=== PATIENT | male | born 1985 | race Caucasian/White ===

== ENCOUNTER 2019-03-22 20:10 | Inpatient (IN) | payer MEDICAID ==
[~2019-03-22] VITALS: Ht 175.3 cm; Wt 86.5 kg
[2019-03-22] VITALS (8 sets, daily range): BP systolic 110–141; BP diastolic 69–118; BMI 27.8
[2019-03-22] MEDS ORDERED: PROZAC20 MG PO (20:14)
[2019-03-22] MEDS ORDERED: BUTALB-APAP-CA1 EACH PO (20:14)
[2019-03-22] MEDS ORDERED: VALIUM5 MG PO (20:14)
[2019-03-22] MEDS ORDERED: ALDACTONE25 MG PO (20:14)
[2019-03-22] MEDS ORDERED: MENEST1.25 MG PO (20:14)
[2019-03-22 21:11] LABS: BASOPHILS 0.2 % (0-2); EOSINOPHILS 4.8 % (0-7); HEMATOCRIT 40.3 % (42.0-54.0); HEMOGLOBIN 14.1 g/dL (13.5-17.5); IMMATURE GRANULOCYTES 0.2 % (0-5); LYMPHOCYTES 19.9 % (15-50); MCH 31.8 pg (26.0-34.0); MEAN PLATELET VOLUME 9.5 fL (7.4-10.4); MONOCYTES 6.7 % (2-11); NEUTROPHILS 68.2 % (40-80); PLATELET COUNT 306 10x3/uL (130-400); RBC 4.43 10x6/uL (4.20-6.10); WBC 12.5 10x3/uL (4.8-10.8)
[2019-03-22 21:33] LABS: ALBUMIN 3.4 g/dL (3.4-5.0); ALKALINE PHOSPHATASE 67 U/L (46-116); ALT (SGPT) 28 U/L (10-68); AMYLASE - SERUM 45 U/L (25-115); BILIRUBIN - TOTAL 0.18 mg/dL (0.2-1.3); CALC OSMOLALITY 277 mosm/kg (275-300); CALCIUM 8.4 mg/dL (8.5-10.1); CARBON DIOXIDE 18.8 mmol/L (21.0-32.0); CHLORIDE - SERUM 107 mmol/L (98-107); CREATININE - SERUM 0.7 mg/dL (0.6-1.3); GLUCOSE 88 mg/dL (74-106); LIPASE 176 U/L (73-393); POTASSIUM - SERUM 4.2 mmol/L (3.5-5.1); PROTEIN - SERUM 6.9 g/dL (6.4-8.2); SODIUM 140 mmol/L (136-145); UREA NITROGEN 12 mg/dL (7-18); eGFR NON AFRICAN AMERICAN > 90 mL/min (90-120)
[2019-03-22 21:47] LABS: UDS - AMPHET NEGATIVE QUAL (NEGATIVE); UDS - BARB POSITIVE QUAL (NEGATIVE); UDS - BENZO POSITIVE QUAL (NEGATIVE); UDS - COCAINE NEGATIVE QUAL (NEGATIVE); UDS - OPIATE NEGATIVE QUAL (NEGATIVE); UDS - PCP NEGATIVE QUAL (NEGATIVE); UDS - THC NEGATIVE QUAL (NEGATIVE)
[2019-03-22 21:51] LABS: APPEARANCE CLEAR (CLEAR); BILIRUBIN NEGATIVE (NEGATIVE); COLOR YELLOW (YELLOW); GLUCOSE NEGATIVE (NEGATIVE); KETONE NEGATIVE (NEGATIVE); NITRITE NEGATIVE (NEGATIVE); PROTEIN TRACE mg/dL (NEGATIVE); SPECIFIC GRAVITY 1.025 (1.005-1.020); UROBILINOGEN NORMAL (NORMAL)
[2019-03-22 21:53] LABS: BACTERIA FEW /hpf (NONE SEEN); EPITHELIAL CELLS 0-5 /hpf (0-5); RED CELLS - URINE 0-5 /hpf (0-5); WHITE CELLS - URINE RARE /hpf (0-5)
[2019-03-23] VITALS (19 sets, daily range): BP systolic 110–131; BP diastolic 71–89
--- NOTE | 2019-03-23 17:22 | MORECARE ---
CASE MANAGEMENT DISCHARGE SUMMARY PATIENT: VENITA BATES UNIT: [id number] ADM DATE: 03/22/19 AGE: 33 : 85 SEX: M ROOM/BED: D.2307 AUTHOR: MARILYNN VU PHYSICIAN: REFERRING PHYSICIAN: SHERLEY HELLER MD DATE OF SERVICE: 03/23/19 Discharge Plan Patient Name: VENITA BATES [facility] [facility] 1985 Planned Disposition: Anticipated Discharge Date: Discharge Date: Expected LOS: Initial Reviewer: [email or web address] Initial Review Date: 03/23/2019 Generated: 03/23/19 6:22 pm Patient Name: VENITA BATES Page 16815 at 1722 All edits/amendments must be made on the electronic document DICTATION DATE: 03/23/191721 GARDEN IMPLEMENT MECHANIC: RAKEL 03/23/191721 RPT#: [id number] DC DATE: STATUS: ADM IN [facility] [address] [place] [address] END OF REPORT
[2019-03-24] VITALS (24 sets, daily range): BP systolic 86–133; BP diastolic 59–95
[2019-03-24 05:04] LABS: BASOPHILS 0.3 % (0-2); EOSINOPHILS 5.4 % (0-7); HEMATOCRIT 37.7 % (42.0-54.0); IMMATURE GRANULOCYTES 0.1 % (0-5); LYMPHOCYTES 24.5 % (15-50); MCH 31.4 pg (26.0-34.0); MCHC 34.5 g/dL (31.0-37.0); MCV 91.1 fL (80.0-100.0); MEAN PLATELET VOLUME 9.6 fL (7.4-10.4); MONOCYTES 8.6 % (2-11); NEUTROPHILS 61.1 % (40-80); PLATELET COUNT 293 10x3/uL (130-400); RBC 4.14 10x6/uL (4.20-6.10); RDW 12.8 % (11.5-14.5)
[2019-03-24 05:45] LABS: WBC 7.8 10x3/uL (4.8-10.8)
[2019-03-24 05:50] LABS: CALCIUM 8.2 mg/dL (8.5-10.1); CHLORIDE - SERUM 107 mmol/L (98-107); CREATININE - SERUM 0.7 mg/dL (0.6-1.3); GLUCOSE 88 mg/dL (74-106); SODIUM 140 mmol/L (136-145); eGFR NON AFRICAN AMERICAN > 90 mL/min (90-120)
[2019-03-24 05:53] LABS: CALC OSMOLALITY 279 mosm/kg (275-300); CARBON DIOXIDE 28.3 mmol/L (21.0-32.0); UREA NITROGEN 17 mg/dL (7-18)
--- NOTE | 2019-03-24 19:33 | MORECARE ---
CASE MANAGEMENT DISCHARGE SUMMARY PATIENT: VENITA BATES UNIT: [id number] ADM DATE: 03/22/19 AGE: 33 : 85 SEX: M ROOM/BED: D.2307 AUTHOR: MARILYNN VU PHYSICIAN: REFERRING PHYSICIAN: SHERLEY HELLER MD DATE OF SERVICE: 03/24/19 Discharge Plan Patient Name: VENITA BATES [facility] [facility] 1985 Planned Disposition: Anticipated Discharge Date: Discharge Date: Expected LOS: Initial Reviewer: [id number] Initial Review Date: 03/23/2019 Generated: 03/24/19 8:32 pm Comments DCP- Discharge Planning Updated by [email or web address]: Kamilah Sanz on 03/24/19 6:[address] AWAITING MEDICAL CLEARANCE FOR PSYCH PLACEMENT. Last DP export: 03/23/19 4:22 p Patient Name: VENITA BATES Page 48282 at 1933 All edits/amendments must be made on the electronic document DICTATION DATE: 03/24/191931 FIRE PREVENTION ENGINEER: RAKEL 03/24/191931 RPT#: [id number] DC DATE: STATUS: ADM IN [facility] [address] [place] [address] END OF REPORT
[2019-03-25] VITALS (24 sets, daily range): BP systolic 79–147; BP diastolic 55–94; Ht 175.3 cm; Wt 86.5 kg
[2019-03-25 04:26] LABS: BASOPHILS 0.1 % (0-2); EOSINOPHILS 3.2 % (0-7); HEMATOCRIT 36.5 % (42.0-54.0); HEMOGLOBIN 12.8 g/dL (13.5-17.5); IMMATURE GRANULOCYTES 0.1 % (0-5); LYMPHOCYTES 25.9 % (15-50); MCH 31.4 pg (26.0-34.0); MCHC 35.1 g/dL (31.0-37.0); MCV 89.7 fL (80.0-100.0); MEAN PLATELET VOLUME 9.3 fL (7.4-10.4); MONOCYTES 7.6 % (2-11); NEUTROPHILS 63.1 % (40-80); PLATELET COUNT 261 10x3/uL (130-400); RBC 4.07 10x6/uL (4.20-6.10); RDW 12.4 % (11.5-14.5)
[2019-03-25 04:46] LABS: ALBUMIN 3.1 g/dL (3.4-5.0); ALKALINE PHOSPHATASE 64 U/L (46-116); ALT (SGPT) 33 U/L (10-68); AMYLASE - SERUM 31 U/L (25-115); BILIRUBIN - TOTAL 0.26 mg/dL (0.2-1.3); CALCIUM 7.7 mg/dL (8.5-10.1); CARBON DIOXIDE 25.6 mmol/L (21.0-32.0); CHLORIDE - SERUM 105 mmol/L (98-107); CREATININE - SERUM 0.7 mg/dL (0.6-1.3); GLUCOSE 93 mg/dL (74-106); LIPASE 123 U/L (73-393); PROTEIN - SERUM 6.4 g/dL (6.4-8.2); SODIUM 140 mmol/L (136-145); eGFR NON AFRICAN AMERICAN > 90 mL/min (90-120)
[2019-03-25 04:51] LABS: CALC OSMOLALITY 277 mosm/kg (275-300); POTASSIUM - SERUM 3.1 mmol/L (3.5-5.1); UREA NITROGEN 9 mg/dL (7-18)
--- NOTE | 2019-03-25 16:38 | CN ---
PATIENT NAME:VENITA BATES MEDICAL RECORD: [id number] : 85 LOCATION:[id number] ADMIT DATE: 03/25/19 ACCOUNT: [id number] CONSULTING PHYSICIAN: ТАТЬЯНА APODACA MD REFERRING PHYSICIAN: SHERLEY HELLER MD DATE OF CONSULTATION: 03/23/2019 IDENTIFYING DATA: The patient is 33 years old and "she" is admitted to the hospital on a voluntary basis secondary to an overdose. CHIEF COMPLAINT: "I had a lot of abdominal pain." HISTORY OF PRESENT ILLNESS: The patient is a biological male who says that he is transgender and prefers to be referred to with female pronouns. I will honor his request. The patient took 100 mg of Valium and two handfuls of gabapentin yesterday. She says that she did this to stop the pain in her abdomen. When asked to explain, she says that she has had abdominal pain for two weeks and that no one has addressed it or been willing to address it and that she felt that she could have something done if she took the overdose. She is to a biological woman. This is her second . She says that she did not leave a suicide note, but when I tell her that it is documented in the medical record from the significant other that a suicide note was left, she then changes her story and says that it was just simply instructions about what to do with possessions if occurred. The patient has tried to kill herself in the past, she did so 6 years ago by drinking Lysol. The patient says she has always been transgender, but only in recent years that she had the courage to speak up about it. She is under hormone implant replacement therapy from a ritual circumciser at [facility]. The patient endorses numerous neurovegetative depressive symptoms and admits to being depressed, but strongly denies being suicidal. MENTAL STATUS EXAMINATION: The patient is awake; alert; and oriented to person, place, time, and situation. Her mood is depressed. Her affect is constricted. Thought processes are circumstantial. Memory, concentration, and abstraction abilities are intact. There are no thoughts of harming others and no psychotic symptoms, and at the moment, she is denying any thoughts of suicide. ASSESSMENT: 1. Status post overdose. 2. Major depression. 3. Cluster B personality traits. 4. Transgender. PLAN: Once the patient is medically stabilized, I recommend she be transferred to inpatient psychiatric care. There are no facilities that I am aware of in this area that have any kind of special interest in transgender individuals. She tells me that she is reluctant to go to the hospital because she thinks the staff and the other patients will beat her up because she is transgender. I have assured her that that is not the case, but she was not very accepting of that explanation. Furthermore, she accused me of saying being transgender was a problem when I asked her how long these problems have been going on, referring to in the context of the conversation of the problems she was telling me about, about the pain in her belly and her head, her conflict with her community and school in [place], etc. I think that she is clearly very primitively defended and extra caution needs to be used when speaking to her. Nevertheless, she took a deliberate very serious overdose privately and wrote a suicide note CONSULT REPORT [id number] VENITA BATES yesterday. I do not believe that it is possible to just simply let her walk out of the hospital with a followup appointment with a psychiatrist some days or weeks down the road. She does need inpatient care to assure her safety and stabilize her before being transitioned to an outpatient. TRANSINT:[id number] Voice Confirmation ID: [id number] DOCUMENT ID: [id number] ТАТЬЯНА APODACA MD at 1638 CC: [id number] DICTATION DATE: 03/23/19 1623 DIRECTOR LIFE SCIENCES: 03/23/19 1742 ADM IN [place] [id number] [place] [id number]
[2019-03-26] VITALS (23 sets, daily range): BP systolic 102–153; BP diastolic 48–90
[2019-03-26 03:55] LABS: BASOPHILS 0.3 % (0-2); EOSINOPHILS 5.2 % (0-7); HEMOGLOBIN 12.1 g/dL (13.5-17.5); IMMATURE GRANULOCYTES 0.2 % (0-5); LYMPHOCYTES 28.3 % (15-50); MCH 31.3 pg (26.0-34.0); MCHC 34.6 g/dL (31.0-37.0); MCV 90.7 fL (80.0-100.0); MEAN PLATELET VOLUME 9.2 fL (7.4-10.4); MONOCYTES 7.4 % (2-11); NEUTROPHILS 58.6 % (40-80); PLATELET COUNT 235 10x3/uL (130-400); RBC 3.86 10x6/uL (4.20-6.10); RDW 12.8 % (11.5-14.5); WBC 6.4 10x3/uL (4.8-10.8)
[2019-03-26 04:06] LABS: CALCIUM 7.6 mg/dL (8.5-10.1); CARBON DIOXIDE 27.1 mmol/L (21.0-32.0); CHLORIDE - SERUM 105 mmol/L (98-107); CREATININE - SERUM 0.6 mg/dL (0.6-1.3); GLUCOSE 99 mg/dL (74-106); SODIUM 141 mmol/L (136-145); eGFR NON AFRICAN AMERICAN > 90 mL/min (90-120)
[2019-03-26 04:08] LABS: INR 1.07 (0.85-1.17); PROTIME 13.4 SECONDS (11.6-15.0)
[2019-03-26 04:09] LABS: CALC OSMOLALITY 277 mosm/kg (275-300); POTASSIUM - SERUM 3.2 mmol/L (3.5-5.1); UREA NITROGEN 5 mg/dL (7-18)
--- NOTE | 2019-03-26 12:37 | MORECARE ---
CASE MANAGEMENT DISCHARGE SUMMARY PATIENT: VENITA BATES UNIT: [id number] ADM DATE: 03/25/19 AGE: 33 : 85 SEX: M ROOM/BED: D.2307 AUTHOR: MARILYNN VU PHYSICIAN: REFERRING PHYSICIAN: SHERLEY HELLER MD DATE OF SERVICE: 03/26/19 Discharge Plan Patient Name: VENITA BATES [facility] [facility] 1985 Planned Disposition: Psych facility Anticipated Discharge Date: Discharge Date: Expected LOS: Initial Reviewer: [email or web address] Initial Review Date: 03/23/2019 Generated: 03/26/19 1:37 pm DCP- Discharge Planning Updated by [email or web address]: Kamilah Sanz on 03/24/19 6:[address] AWAITING MEDICAL CLEARANCE FOR PSYCH PLACEMENT. Last DP export: 03/24/19 6:32 p Patient Name: VENITA BATES Page 71299 at 1237 All edits/amendments must be made on the electronic document DICTATION DATE: 03/26/19 1236 STORY TELLER: RAKEL 03/26/19 1236 RPT#: [id number] DC DATE: STATUS: ADM IN [facility] [address] [place] [address] END OF REPORT
--- NOTE | 2019-03-26 12:44 | MORECARE ---
CASE MANAGEMENT DISCHARGE SUMMARY PATIENT: VENITA BATES UNIT: [id number] ADM DATE: 03/25/19 AGE: 33 : 85 SEX: M ROOM/BED: D.2307 AUTHOR: MARILYNN VU PHYSICIAN: REFERRING PHYSICIAN: SHERLEY HELLER MD DATE OF SERVICE: 03/26/19 Discharge Plan Patient Name: VENITA BATES [facility] [facility] 1985 Planned Disposition: Psych facility Anticipated Discharge Date: Discharge Date: Expected LOS: Initial Reviewer: [email or web address] Initial Review Date: 03/23/2019 Generated: 03/26/19 1:43 pm Comments DCP- Discharge Planning Updated by [email or web address]: Kamilah Sanz on 03/26/19 11:[address] Patient Name: VENITA BATES Admission Status: ER Accout number: [id number] Admission Date: 03-25-2019 : 1985 Admission Diagnosis: Attending: SHERLEY HELLER Current LOS: 1 Anticipated DC Date: Planned Disposition: Psych facility Primary Insurance: [place] [employer] [place] Discharge Planning Comments: CM NOTIFIED THAT ONCE PATIENT HAS EGD AND COLONOSCOPY TODAY THEN HE WILL BE READY FOR PLACEMENT FOR INPATIENT PSYCH FACILITY IN AM. CM WILL HAVE RECORDS READY TO SEND TO TRANSFER CENTER FIRST THING IN AM. CM WILL CONTINUE TO FOLLOW AND ASSIST NEEDED WITH DISCHARGE PLANNING / NEEDS. Hosiery Knitter: Kamilah Sanz DCP- Discharge Planning Updated by [email or web address]: Kamilah Sanz on 03/24/19 6:[address] AWAITING MEDICAL CLEARANCE FOR PSYCH PLACEMENT. Last DP export: 03/26/19 11:37 am Patient Name: VENITA BATES Page 04637 at 1244 All edits/amendments must be made on the electronic document DICTATION DATE: 03/26/191242 DISEASE CASE MANAGER: RAKEL 03/26/19 124 RPT#: [id number] DC DATE: STATUS: ADM IN [facility] [address] [place] [address] END OF REPORT
[2019-03-27] VITALS (11 sets, daily range): BP systolic 93–130; BP diastolic 49–94
[2019-03-27 03:37] LABS: BASOPHILS 0.2 % (0-2); HEMATOCRIT 35.2 % (42.0-54.0); IMMATURE GRANULOCYTES 0.1 % (0-5); LYMPHOCYTES 22.3 % (15-50); MCH 31.2 pg (26.0-34.0); MCHC 34.1 g/dL (31.0-37.0); MCV 91.4 fL (80.0-100.0); MEAN PLATELET VOLUME 9.2 fL (7.4-10.4); MONOCYTES 7.4 % (2-11); PLATELET COUNT 240 10x3/uL (130-400); RBC 3.85 10x6/uL (4.20-6.10); RDW 12.9 % (11.5-14.5)
[2019-03-27 03:40] LABS: WBC 9.2 10x3/uL (4.8-10.8)
[2019-03-27 03:43] LABS: CALC OSMOLALITY 278 mosm/kg (275-300); CALCIUM 7.8 mg/dL (8.5-10.1); CARBON DIOXIDE 25.1 mmol/L (21.0-32.0); CHLORIDE - SERUM 107 mmol/L (98-107); CREATININE - SERUM 0.6 mg/dL (0.6-1.3); GLUCOSE 100 mg/dL (74-106); POTASSIUM - SERUM 3.5 mmol/L (3.5-5.1); SODIUM 140 mmol/L (136-145); eGFR NON AFRICAN AMERICAN > 90 mL/min (90-120)
[2019-03-27 03:44] LABS: UREA NITROGEN 12 mg/dL (7-18)
--- NOTE | 2019-03-27 09:24 | MORECARE ---
CASE MANAGEMENT DISCHARGE SUMMARY PATIENT: VENITA BATES UNIT: [id number] ADM DATE: 03/25/19 AGE: 33 : 85 SEX: M ROOM/BED: D.2307 AUTHOR: MARILYNN VU PHYSICIAN: REFERRING PHYSICIAN: SHERLEY HELLER MD DATE OF SERVICE: 03/27/19 Discharge Plan Patient Name: VENITA BATES [facility] [facility] 1985 Planned Disposition: Psych facility Anticipated Discharge Date: Discharge Date: Expected LOS: Initial Reviewer: [email or web address] Initial Review Date: 03/23/2019 Generated: 03/27/19 10:23 am Comments DCP- Discharge Planning Updated by [id number]: Kamilah Sanz on 03/26/19 11:[address] Patient Name: VENITA BATES Admission Status: ER Accout number: [id number] Admission Date: 03-25-2019 : 1985 Admission Diagnosis: Attending: SHERLEY HELLER Current LOS: 1 Anticipated DC Date: Planned Disposition: Psych facility Primary Insurance: [place] [employer] Discharge Planning Comments: CM NOTIFIED THAT ONCE PATIENT HAS EGD AND COLONOSCOPY TODAY THEN HE WILL BE READY FOR PLACEMENT FOR INPATIENT PSYCH FACILITY IN AM. CM WILL HAVE RECORDS READY TO SEND TO TRANSFER CENTER FIRST THING IN AM. CM WILL CONTINUE TO FOLLOW AND ASSIST NEEDED WITH DISCHARGE PLANNING / NEEDS. Clearance Rep: Kamilah Sanz DCP- Discharge Planning Updated by [email or web address]: Kamilah Sanz on 03/24/19 6:[address] AWAITING MEDICAL CLEARANCE FOR PSYCH PLACEMENT. External Providers External Provider: [facility] Next Contact Date: Service Request Date: Service Type: Resolution: Reviewer: Comments: Last DP export: 03/26/19 11:44 am Patient Name: VENITA BATES Page 09731 at 0924 All edits/amendments must be made on the electronic document DICTATION DATE: 03/27/19922 SCREEN PRINTING PRESS OPERATOR: DM 03/27/19922 RPT#: [id number] DC DATE: STATUS: ADM IN [place] [address] [place] [address] END OF REPORT
--- NOTE | 2019-03-27 15:05 | MORECARE ---
CASE MANAGEMENT DISCHARGE SUMMARY PATIENT: VENITA BATES UNIT: [id number] ADM DATE: 03/25/19 AGE: 33 : 85 SEX: M ROOM/BED: D.2307 AUTHOR: MARILYNN VU PHYSICIAN: REFERRING PHYSICIAN: SHERLEY HELLER MD DATE OF SERVICE: 03/27/19 Discharge Plan Patient Name: VENITA BATES [facility] [facility] 1985 Planned Disposition: Psych facility Anticipated Discharge Date: Discharge Date: Expected LOS: Initial Reviewer: [email or web address] Initial Review Date: 03/23/2019 Generated: 03/27/19 4:04 pm Comments DCP- Discharge Planning Updated by [email or web address]: Kamilah Sanz on 03/26/19 11:[address] Patient Name: VENITA BATES Admission Status: ER Accout number: [id number] Admission Date: 03-25-2019 : 1985 Admission Diagnosis: Attending: SHERLEY HELLER Current LOS: 1 Anticipated DC Date: Planned Disposition: Psych facility Primary Insurance: [place] [employer] Discharge Planning Comments: CM NOTIFIED THAT ONCE PATIENT HAS EGD AND COLONOSCOPY TODAY THEN HE WILL BE READY FOR PLACEMENT FOR INPATIENT PSYCH FACILITY IN AM. CM WILL HAVE RECORDS READY TO SEND TO TRANSFER CENTER FIRST THING IN AM. CM WILL CONTINUE TO FOLLOW AND ASSIST NEEDED WITH DISCHARGE PLANNING / NEEDS. Biodiesel Production Associate: Kamilah Sanz DCP- Discharge Planning Updated by [email or web address]: Kamilah Sanz on 03/24/19 6:[address] AWAITING MEDICAL CLEARANCE FOR PSYCH PLACEMENT. External Providers External Provider: [facility] Next Contact Date: Service Request Date: Service Type: Resolution: Reviewer: Comments: External Provider: [facility] Next Contact Date: Service Request Date: Service Type: Resolution: Reviewer: Comments: Last DP export: 03/27/19 8:24 am Patient Name: VENITA BATES Page 66739 at 1505 All edits/amendments must be made on the electronic document DICTATION DATE: 03/27/19 1504 CERTIFIED PUBLIC ACCOUNTANT: RAKEL 03/27/19 1504 RPT#: [id number] DC DATE: STATUS: ADM IN [facility] [address] [place] [address] END OF REPORT
--- NOTE | 2019-03-27 15:36 | MORECARE ---
CASE MANAGEMENT DISCHARGE SUMMARY PATIENT: VENITA BATES UNIT: [id number] ADM DATE: 03/25/19 AGE: 33 : 85 SEX: M ROOM/BED: D.2307 AUTHOR: MIRELLA,DOC PHYSICIAN: REFERRING PHYSICIAN: SHERLEY HELLER MD DATE OF SERVICE: 03/27/19 Discharge Plan Patient Name: VENITA BATES [facility] [facility] 1985 Planned Disposition: Psych facility Anticipated Discharge Date: Discharge Date: Expected LOS: Initial Reviewer: [email or web address] Initial Review Date: 03/23/2019 Generated: 03/27/19 4:36 pm Comments DCP- Discharge Planning Updated by [id number]: Kamilah Sanz on 03/27/19 2:[address] CM sent records to transfer center this am for psychiatric placement. Patient wasn't wanting to go to inpatient facility. It was explained to him that if he didn't agree to inpatient psychiatric unit then he would be placed on 72 hr hold in which weekends are not counted in that time frame. He (she) reluctantly agreed for placement but is requesting a facility that will let him smoke. He is refusing a nicotine patch at this time. Randi - CM called and spoke with transfer center regarding placement. [facility] denied - [facility] patient refused. Still awaiting decision on other facilities. CM will continue to follow and assist as needed with discharge planning / needs. DCP- Discharge Planning Updated by [email or web address]: Kamilah Sanz on 03/26/19 11:[address] Patient Name: VENITA BATES Admission Status: ER Accout number: [id number] Admission Date: 03-25-2019 : 1985 Admission Diagnosis: Attending: SHERLEY HELLER Current LOS: 1 Anticipated DC Date: Planned Disposition: Psych facility Primary Insurance: [place] [employer]IONS [facility] Discharge Planning Comments: CM NOTIFIED THAT ONCE PATIENT HAS EGD AND COLONOSCOPY TODAY THEN HE WILL BE READY FOR PLACEMENT FOR INPATIENT PSYCH FACILITY IN AM. CM WILL HAVE RECORDS READY TO SEND TO TRANSFER CENTER FIRST THING IN AM. CM WILL CONTINUE TO FOLLOW AND ASSIST NEEDED WITH DISCHARGE PLANNING / NEEDS. Thread Spinner: Kamilah Sanz DCP- Discharge Planning Updated by [email or web address]: Kamilah Sanz on 03/24/19 6:[address] AWAITING MEDICAL CLEARANCE FOR PSYCH PLACEMENT. Last DP export: 03/27/19 2:04 pm Patient Name: VENITA BATES Page 18196 at 1536 All edits/amendments must be made on the electronic document DICTATION DATE: 03/27/191534 CYBER INCIDENT HANDLER: RAKEL 03/27/191534 RPT#: [id number] DC DATE: STATUS: ADM IN [facility] [address] [place] [address] END OF REPORT
--- NOTE | 2019-03-27 17:37 | MORECARE ---
CASE MANAGEMENT DISCHARGE SUMMARY PATIENT: VENITA BATES UNIT: [id number] ADM DATE: 03/25/19 AGE: 33 : 85 SEX: M ROOM/BED: D.2307 AUTHOR: MIRELLA,DOC PHYSICIAN: REFERRING PHYSICIAN: SHERLEY HELLER MD DATE OF SERVICE: 03/27/19 Discharge Plan Patient Name: VENITA BATES [facility] [facility] 1985 Planned Disposition: Psych facility Anticipated Discharge Date: Discharge Date: Expected LOS: Initial Reviewer: [email or web address] Initial Review Date: 03/23/2019 Generated: 03/27/19 6:37 pm Comments DCP- Discharge Planning Updated by [email or web address]: Kamilah Sanz on 03/27/19 4:[address] [facility] called and stated that if the patient isn't suicidal at this time then he just needs to follow up with outpatient. Nursing to get in touch Dr. Stout . Dr. Stout agreed to have patient follow up outpatient. CM gave patient information packet on [facility] walk in clinic. Patient states he has a therapist he sees regularly and plans to follow up with her. Nursing to speak with Dr. Sanchez about discharge planning. CM will continue to follow and assist as needed with discharge planning / needs. DCP- Discharge Planning Updated by [email or web address]: Kamilah Sanz on 03/27/19 2:[address] CM sent records to transfer center this am for psychiatric placement. Patient wasn't wanting to go to inpatient facility. It was explained to him that if he didn't agree to inpatient psychiatric unit then he would be placed on 72 hr hold in which weekends are not counted in that time frame. He (she) reluctantly agreed for placement but is requesting a facility that will let him smoke. He is refusing a nicotine patch at this time. 1500 - CM called and spoke with transfer center regarding placement. [facility] denied - [facility] patient refused. Still awaiting decision on other facilities. CM will continue to follow and assist as needed with discharge planning / needs. DCP- Discharge Planning Updated by [id number]: Kamilah Sanz on 03/26/19 11:[address] Patient Name: VENITA BATES Admission Status: ER Accout number: [id number] Admission Date: 03-25-2019 : 1985 Admission Diagnosis: Attending: SHERLEY HELLER Current LOS: 1 Anticipated DC Date: Planned Disposition: Psych facility Primary Insurance: [place] [employer] Discharge Planning Comments: CM NOTIFIED THAT ONCE PATIENT HAS EGD AND COLONOSCOPY TODAY THEN HE WILL BE READY FOR PLACEMENT FOR INPATIENT PSYCH FACILITY IN AM. CM WILL HAVE RECORDS READY TO SEND TO TRANSFER CENTER FIRST THING IN AM. CM WILL CONTINUE TO FOLLOW AND ASSIST NEEDED WITH DISCHARGE PLANNING / NEEDS. Color Grinder: Kamilah Sanz DCP- Discharge Planning Updated by [email or web address]: Kamilah Sanz on 03/24/19 6:[address] AWAITING MEDICAL CLEARANCE FOR PSYCH PLACEMENT. Last DP export: 03/27/19 2:36 pm Patient Name: VENITA BATES Page 50657 at 1737 All edits/amendments must be made on the electronic document DICTATION DATE: 03/27/191735 ETL CONSULTANT: RAKEL 03/27/191735 RPT#: [id number] DC DATE: STATUS: ADM IN [facility] [address] [place] [address] END OF REPORT
--- NOTE | 2019-03-30 08:50 | MORECARE ---
CASE MANAGEMENT DISCHARGE SUMMARY PATIENT: VENITA BATES UNIT: [id number] ADM DATE: 03/25/19 AGE: 33 : 85 SEX: M ROOM/BED: D.2307 AUTHOR: MIRELLA,DOC PHYSICIAN: REFERRING PHYSICIAN: SHERLEY HELLER MD DATE OF SERVICE: 03/30/19 Discharge Plan Patient Name: VENITA BATES [facility] [facility] 1985 Planned Disposition: Psych facility Anticipated Discharge Date: Discharge Date: 03/27/2019 Expected LOS: Initial Reviewer: [id number] Initial Review Date: 03/23/2019 Generated: 03/30/19 9:50 am Comments DCP- Discharge Planning Updated by [id number]: Kamilah Sanz on 03/27/19 4:[address] [facility] called and stated that if the patient isn't suicidal at this time then he just needs to follow up with outpatient. Nursing to get in touch Dr. Stout . Dr. Stout agreed to have patient follow up outpatient. CM gave patient information packet on [facility] walk in clinic. Patient states he has a therapist he sees regularly and plans to follow up with her. Nursing to speak with Dr. Sanchez about discharge planning. CM will continue to follow and assist as needed with discharge planning / needs. DCP- Discharge Planning Updated by [email or web address]: Kamilah Sanz on 03/27/19 2:[address] CM sent records to transfer center this am for psychiatric placement. Patient wasn't wanting to go to inpatient facility. It was explained to him that if he didn't agree to inpatient psychiatric unit then he would be placed on 72 hr hold in which weekends are not counted in that time frame. He (she) reluctantly agreed for placement but is requesting a facility that will let him smoke. He is refusing a nicotine patch at this time. Randi - CM called and spoke with transfer center regarding placement. [facility] denied - [facility] patient refused. Still awaiting decision on other facilities. CM will continue to follow and assist as needed with discharge planning / needs. DCP- Discharge Planning Updated by [email or web address]: Kamilah Sanz on 03/26/19 11:[address] Patient Name: VENITA BATES Admission Status: ER Accout number: [id number] Admission Date: 03-25-2019 : 1985 Admission Diagnosis: Attending: SHERLEY HELLER Current LOS: 1 Anticipated DC Date: Planned Disposition: Psych facility Primary Insurance: [place] [employer] Discharge Planning Comments: CM NOTIFIED THAT ONCE PATIENT HAS EGD AND COLONOSCOPY TODAY THEN HE WILL BE READY FOR PLACEMENT FOR INPATIENT PSYCH FACILITY IN AM. CM WILL HAVE RECORDS READY TO SEND TO TRANSFER CENTER FIRST THING IN AM. CM WILL CONTINUE TO FOLLOW AND ASSIST NEEDED WITH DISCHARGE PLANNING / NEEDS. Diaphragm Builder: Kamilah Sanz DCP- Discharge Planning Updated by [email or web address]: Kamilah Sanz on 03/24/19 6:[address] AWAITING MEDICAL CLEARANCE FOR PSYCH PLACEMENT. Last DP export: 03/27/19 4:37 pm Patient Name: VENITA BATES Page 87602 at 0850 All edits/amendments must be made on the electronic document DICTATION DATE: 03/30/19 0849 SUPERVISOR ALUMINUM BOAT ASSEMBLY: RAKEL 03/30/19 0849 RPT#: [id number] DC DATE:03/27/19 STATUS: DIS IN [facility] [address] [place] [address] END OF REPORT
== END 2019-03-27 18:15 | disposition home or self-care (01) | DRG 383 ==
LOC: D.ER 20:10 → OBSVTIME 23:18 → D.ICU 23:18
PROVIDERS: Family Medicine; Internal Medicine Gastroenterology; ADMIT Internal Medicine Nephrology; ATTEND Internal Medicine Nephrology
PROC: 0DB78ZX Excision of Stomach, Pylorus, Via Natural or Artificial Opening Endoscopic, Diagnostic (ICD-10-PCS; 2019-03-26)
PROC: 0DB58ZX Excision of Esophagus, Via Natural or Artificial Opening Endoscopic, Diagnostic (ICD-10-PCS; 2019-03-26)
PROC: 0DBC8ZX Excision of Ileocecal Valve, Via Natural or Artificial Opening Endoscopic, Diagnostic (ICD-10-PCS; 2019-03-26)
PROC: 0DB98ZX Excision of Duodenum, Via Natural or Artificial Opening Endoscopic, Diagnostic (ICD-10-PCS; principal; 2019-03-26 17:52)
DX: K25.9 Gastric ulcer, unspecified as acute or chronic, without hemorrhage or perforation (principal); J18.9 Pneumonia, unspecified organism; R45.851 Suicidal ideations; K57.92 Diverticulitis of intestine, part unspecified, without perforation or abscess without bleeding; T50.992A Poisoning by other drugs, medicaments and biological substances, intentional self-harm, initial encounter; F64.0 Transsexualism; I10 Essential (primary) hypertension; J44.9 Chronic obstructive pulmonary disease, unspecified; K21.9 Gastro-esophageal reflux disease without esophagitis; F17.200 Nicotine dependence, unspecified, uncomplicated; F41.8 Other specified anxiety disorders; K52.9 Noninfective gastroenteritis and colitis, unspecified; R10.13 Epigastric pain; R63.4 Abnormal weight loss; K20.9 Esophagitis, unspecified; K29.70 Gastritis, unspecified, without bleeding; K26.9 Duodenal ulcer, unspecified as acute or chronic, without hemorrhage or perforation

== ENCOUNTER 2019-07-14 00:27 | Emergency (ER) | payer MEDICAID ==
[~2019-07-14] VITALS: Ht 175.3 cm; Wt 93.2 kg
[~2019-07-14 00:27] MED LIST: ALDACTONE25 MG PO; BUTALB-APAP-CA1 EACH PO; MENEST1.25 MG PO; PROZAC20 MG PO; VALIUM5 MG PO
[2019-07-14 00:38] VITALS: BP 151/93; Ht 175.3 cm; Wt 93.2 kg
[2019-07-14] MEDS ORDERED: BUPROPION XL300 MG PO (00:40)
[2019-07-14] MEDS ORDERED: PROZAC40 MG PO (00:40)
[2019-07-14] MEDS ORDERED: XANAX1 MG PO (00:41)
[2019-07-14] MEDS ORDERED: HYDROCODON-ACE1 EA10 PO (00:41)
[2019-07-14] MEDS ORDERED: AMOXICILLIN875 MG PO (00:41)
[2019-07-14] MEDS ORDERED: IMODIUM2 MG PO (00:42)
[2019-07-14] MEDS ORDERED: CIPROFLOXACIN750 MG PO (00:42)
[2019-07-14] MEDS ORDERED: MECLIZINE HCL25 MG PO (00:43)
[2019-07-14 01:19] LABS: BASOPHILS 0.2 % (0-2); EOSINOPHILS 4.3 % (0-7); HEMATOCRIT 35.5 % (42.0-54.0); IMMATURE GRANULOCYTES 0.2 % (0-5); LYMPHOCYTES 29.9 % (15-50); MCH 31.7 pg (26.0-34.0); MCHC 36.6 g/dL (31.0-37.0); MCV 86.6 fL (80.0-100.0); MEAN PLATELET VOLUME 9.1 fL (7.4-10.4); MONOCYTES 6.1 % (2-11); NEUTROPHILS 59.3 % (40-80); PLATELET COUNT 291 10x3/uL (130-400); RDW 12.1 % (11.5-14.5); WBC 10.3 10x3/uL (4.8-10.8)
[2019-07-14 01:34] LABS: ALBUMIN 3.6 g/dL (3.4-5.0); ALKALINE PHOSPHATASE 95 U/L (46-116); ALT (SGPT) 26 U/L (10-68); BILIRUBIN - TOTAL 0.27 mg/dL (0.2-1.3); CALC OSMOLALITY 280 mosm/kg (275-300); CALCIUM 8.4 mg/dL (8.5-10.1); CARBON DIOXIDE 27.2 mmol/L (21.0-32.0); CHLORIDE - SERUM 105 mmol/L (98-107); CREATININE - SERUM 1.1 mg/dL (0.6-1.3); GLUCOSE 110 mg/dL (74-106); SODIUM 139 mmol/L (136-145); UREA NITROGEN 18 mg/dL (7-18); eGFR NON AFRICAN AMERICAN 82 mL/min (90-120)
[2019-07-14 01:37] LABS: AMYLASE - SERUM 34 U/L (25-115); LIPASE 220 U/L (73-393)
== END 2019-07-14 02:33 | disposition home or self-care (01) ==
LOC: D.ER 00:27
PROVIDERS: Family Medicine
DX: G89.29 Other chronic pain (principal)